=== PATIENT | male | born 1970 | race Caucasian/White ===

== ENCOUNTER 2020-02-07 17:30 | Inpatient (IN) | payer OTHER ==
[~2020-02-07] VITALS: Ht 170.2 cm; Wt 79.8 kg
== END 2020-02-11 20:00 | disposition home or self-care (01) | DRG 392 ==
LOC: ER 17:30 → MEDI 23:57 → SURH 23:57
PROVIDERS: ADMIT Internal Medicine; ATTEND Internal Medicine
PROC: BW21ZZZ Computerized Tomography (CT Scan) of Abdomen and Pelvis (ICD-10-PCS; principal; 2020-02-08)
DX: K57.20 Diverticulitis of large intestine with perforation and abscess without bleeding (principal); Z20.828 Contact with and (suspected) exposure to other viral communicable diseases

== ENCOUNTER 2020-03-15 08:11 | Outpatient (CLI) | payer OTHER | END 2020-03-15 08:21 | disposition home or self-care (01) | LOC: LAB 08:11 | PROVIDERS: ATTEND Internal Medicine Geriatric Medicine | DX: D68.8 Other specified coagulation defects (principal) ==